=== PATIENT | female | born 1940 | race Caucasian/White ===

== ENCOUNTER 2019-08-22 17:31 | Inpatient (IN) | payer OTHER ==
[~2019-08-22] VITALS: Ht 152.4 cm; Wt 126.3 kg
[2019-08-22] MEDS ORDERED: ONDANSETRON HCL 4 MG/2 ML VIAL IV ONE (18:00)
[2019-08-22 18:17] LABS: Basophils # (auto) 0.1 10 ^3/uL (0-0.2); Basophils % (auto) 1.2 % (0.0-2.0); Eosinophils # (auto) 0.3 10 ^3/uL (0-0.8); Hematocrit 43.6 % (36.0-46.0); Hemoglobin 14.5 g/dL (12.2-16.2); Lymphocytes # (auto) 2.8 10 ^3/uL (0.4-5.4); Lymphocytes % (auto) 30.1 % (10.0-50.0); Mean Corpuscular Hemoglobin 30.6 pg (28.0-32.0); Mean Corpuscular Hgb Conc. 33.3 g/dL (32.0-36.0); Mean Corpuscular Volume 92.1 fL (80.0-100.0); Monocytes # (auto) 0.8 10 ^3/uL (0-1.3); Monocytes % (auto) 8.4 % (0.0-12.0); Neutrophils # (auto) 5.2 10 ^3/uL (1.6-8.6); Neutrophils % (auto) 57.3 % (37.0-80.0); Nucleated Red Blood Cells % 0.1 %; Platelet Count (auto) 210 10^3/uL (140-450); Red Blood Cells 4.74 10^6/uL (4.0-5.20); Red Cell Distribution Width 13.6 % (11.8-14.3); White Blood Cell 9.1 10^3/uL (4.4-10.8)
[2019-08-22 18:31] LABS: Alanine Aminotransferase 14 U/L (13-56); Albumin 3.6 g/dL (3.4-5.0); Anion Gap 9 (5-15); Aspartate Aminotransferase 22 U/L (15-37); BUN/Creatinine Ratio 17.3; Blood Urea Nitrogen 17 mg/dL (7-18); Calcium 8.8 mg/dL (8.5-10.1); Carbon Dioxide 20 mmol/L (21-32); Chloride 105 mmol/L (98-107); GFR African American 70 mL/min; GFR Non-African American 58 mL/min; Glucose 94 mg/dL (74-106); Potassium 4.1 mmol/L (3.5-5.1); Sodium 134 mmol/L (136-145)
[2019-08-22 18:36] LABS: Alkaline Phosphatase 83 U/L (45-117); Bilirubin, Total 0.5 mg/dL (0.2-1.0); Total Protein 7.4 g/dL (6.4-8.2)
[2019-08-22] MEDS ORDERED: LORazepam 2MG/ML-1ML VIAL IV PRN (21:30)
[2019-08-22] MEDS ORDERED: SODIUM CHLORIDE 0.9% 1,000 ML IV ONE (21:30)
[2019-08-22] MEDS ORDERED: DOCUSATE SOD 100 MG CAP PO PRN (22:45)
[2019-08-22] MEDS ORDERED: HYDROcodone-ACET 5/325MG TAB PO PRN (22:45)
[2019-08-22] MEDS ORDERED: NITROGLYCERIN 0.4 MG SL TAB SL PRN (22:45)
[2019-08-22] MEDS ORDERED: ONDANSETRON HCL 4 MG/2 ML VIAL IV PRN (22:45)
[2019-08-22] MEDS ORDERED: MORPHINE SULF INJ 2 MG/ML SYRINGE 1ML IV PRN ×2 (22:45)
[2019-08-22] MEDS ORDERED: ACETAMINOPHEN 325 MG TAB PO PRN (22:45)
[2019-08-22] MEDS: SODIUM CHLORIDE 0.9% 1,000 ML IV SCH (23:01)
[2019-08-23] VITALS (7 sets, daily range): BP systolic 105–168; BP diastolic 63–91
--- NOTE | 2019-08-23 | NUR ---
Patient admitted to unit from ER Patient AOX4 with no complaints of pain. No signs or symptoms of distress, no SOB. Patient safety measures in place w/ HOB at 30 degrees, bed in lowest position, side rails up x2, and call light within reach. Discussed POC w/ patient, patient gave verbal understanding.
[2019-08-23] MEDS ORDERED: ATEN-60 PO (01:39)
[2019-08-23 07:26] LABS: Basophils # (auto) 0.1 10 ^3/uL (0-0.2); Basophils % (auto) 1.2 % (0.0-2.0); Eosinophils # (auto) 0.2 10 ^3/uL (0-0.8); Eosinophils % (auto) 2.5 % (0.0-7.0); Hematocrit 43.8 % (36.0-46.0); Hemoglobin 14.7 g/dL (12.2-16.2); Lymphocytes # (auto) 2.4 10 ^3/uL (0.4-5.4); Mean Corpuscular Hgb Conc. 33.7 g/dL (32.0-36.0); Mean Corpuscular Volume 92.1 fL (80.0-100.0); Monocytes # (auto) 0.7 10 ^3/uL (0-1.3); Monocytes % (auto) 8.7 % (0.0-12.0); Neutrophils # (auto) 4.7 10 ^3/uL (1.6-8.6); Neutrophils % (auto) 57.6 % (37.0-80.0); Nucleated Red Blood Cells % 0.2 %; Platelet Count (auto) 221 10^3/uL (140-450); Red Blood Cells 4.75 10^6/uL (4.0-5.20); Red Cell Distribution Width 13.4 % (11.8-14.3); White Blood Cell 8.1 10^3/uL (4.4-10.8)
--- NOTE | 2019-08-23 07:35 | NUR ---
Report given to SAHRA Cardoza, patient is resting no distress, pain or SOB.
[2019-08-23 07:42] LABS: Calcium 8.9 mg/dL (8.5-10.1)
[2019-08-23 07:45] LABS: BUN/Creatinine Ratio 13.6
--- NOTE | 2019-08-23 07:55 | NUR ---
Opening Shift Note Assumed care of patient, awake and alert. No S/S of distress/SOB or pain. Instructed on POC and to call for assist PRN, will continue to monitor for changes Q1hr and PRN. Call light place within reach for patient.
[2019-08-23] MEDS: ATORVASTATIN 20 MG TAB PO SCH (10:00)
[2019-08-23] MEDS: ASPirin 81 mg TAB PO SCH (10:00)
--- NOTE | 2019-08-23 10:00 | NUR ---
PO Medications Patient refused aspirin and Lipitor this AM. She states that her eye doctor does not want her to take Aspirin because she bleeds easily in her eyes, and she took Lipitor in the past and it gave her severe pain in her legs and restricted walking so her PCP discontinued it for her.
[2019-08-23] MEDS ORDERED: ATOR20TA50 PO (11:43)
[2019-08-23] MEDS ORDERED: ASPI81CH43 PO (11:43)
--- NOTE | 2019-08-23 14:30 | NUR ---
Patient confused As per Michael (soil technician, he could not complete procedure. Patient became very restless). Patient came back to the unit and is very confused and agitated.
--- NOTE | 2019-08-23 14:42 | NUR ---
Hospitalist Radhaing Dr. Zuluaga at bedside.
--- NOTE | 2019-08-23 14:45 | NUR ---
Rounding Patient took out IV stated that she just wanted it out, it's been in since yesterday. She also took her wrist band and fall band. She said she just wanted them off. Explained to patient the purpose of them. Will place new ones.
--- NOTE | 2019-08-23 16:50 | NUR ---
Orientation Patient alert and oriented to person, place, time, and situation.
--- NOTE | 2019-08-23 17:45 | NUR ---
IV insertion IV access obtained, via clean sterile technique by inserting a 24 gauge catheter at Left forearm after 3 attempt(s). IV secured properly. No trauma to site. Patient tolerated well. Addendum: 08/23/19 at 1806 by GISEL NORRIS RN IV inserted by patricia BOCANEGRA
[2019-08-23] MEDS: SODIUM CHLORIDE 0.9% 1,000 ML IV SCH (18:04)
--- NOTE | 2019-08-23 19:20 | NUR ---
Opening Shift Note Assumed care of patient, AOx1. No S/S of distress/SOB or pain. Patient woke up from a nap confused about being in the hospital. Reminded patient about place and situation. Patient re-oriented and now resting. Will continue to monitor for changes. Safety measures in place w/ HOB 30 degrees, bed in lowest position, bed alarm on, call light within reach, and side rails up x2.
[2019-08-24 05:15] VITALS: BP 155/71
--- NOTE | 2019-08-24 06:00 | NUR ---
Patient running ST elevation, only complain from patient was slight nausea. EKG was done showing slight ST-elevation. No other signs or symptoms were noted. Per Dr. Barry, cardiac consult and troponin levels ordered.
[2019-08-24 09:00] VITALS: BP 110/65
[2019-08-24] MEDS: SODIUM CHLORIDE 0.9% 1,000 ML IV SCH (09:48)
[2019-08-24] MEDS: ATORVASTATIN 20 MG TAB PO SCH (09:49)
[2019-08-24] MEDS: ASPirin 81 mg TAB PO SCH (09:50)
--- NOTE | 2019-08-24 11:28 | NUR ---
Notified community service technician to call in cardio consult for patient.
--- NOTE | 2019-08-24 11:54 | NUR ---
DR ANAYA CALLED, HE REPORTS HE IS NOT CONTRACTED WITH THIS PATIENT. REPORTS HE WAS ALREADY CALLED AND NOTIFIED OF PT ST ELEVATION, HE REPORTS PT DID NOT HAVE A STEMI.
--- NOTE | 2019-08-24 11:59 | NUR ---
DR ANAYA REQUESTED COPY OF EKG TO BE BULLETED TO HIM, LATONIA BODY MECHANIC REPORTS SHE BULLETED EKG AND MADE A COPY.
[2019-08-24 13:00] VITALS: BP 155/74
--- NOTE | 2019-08-24 13:30 | NUR ---
DR TERESE YIP MD REPORTS PT HAS HAD A STROKE AND TO DC ON ASPIRIN AND LIPITOR. Addendum: 08/24/19 at 1337 by TEMITOPE YOUSIF RN REPORTS HE REVIEWED THE MRI FROM TODAY AND IS AWARE.
--- NOTE | 2019-08-24 14:46 | NUR ---
PROCESS INSPECTOR REPORTS PT BP 155/74, HR 69. REASSESSED BP, BP 167/87, HR 69. CALLED AND LEFT MESSAGE FOR DR GUDINO, REPORTING BLOOD PRESSURE AND REQUESTING MED TO BRING IT DOWN. AWAITING CALL BACK.
--- NOTE | 2019-08-24 14:52 | NUR ---
PAGED SS TO SET UP HOME HEALTH. AWAITING CALL BACK.
--- NOTE | 2019-08-24 14:53 | NUR ---
DR GUDINO CALLED BACK, NEW ORDERS FOR ATENOLOL 25 MG PO NOW AND THEN DC.
[2019-08-24] MEDS ORDERED: ATENOLOL 25 MG TAB PO ONE (15:00)
--- NOTE | 2019-08-24 16:19 | NUR ---
ASHU CALLED BACK, SHE REPORTS PT IS SET UP WITH [facility] AND TO FAX PAPERWORK TO [facility] AND [facility]. ASKED LATONIA ASSISTED LIVING ASSOCIATE TO FAX PAPER WORK.
[2019-08-24 17:00] VITALS: BP 147/84
--- NOTE | 2019-08-24 18:00 | NUR ---
RECHECKED PT BP AGAIN, BP 147/101, HR 72.
--- NOTE | 2019-08-24 19:01 | NUR ---
[facility] is not available to be paged at this time. Unable to confirm if [facility] has agreed to sent walker to home or if [facility] has arranged home health. Will attempt to call [facility].
--- NOTE | 2019-08-24 19:02 | NUR ---
CALLED [facility] TO SEE IF PT WAS SET UP, NO ANSWER, LEFT MESSAGE, AWAITING CALL BACK.
--- NOTE | 2019-08-24 19:26 | NUR ---
Spoke to [facility]. Patient's insurance is not accepted by company so they will not be delivering walker. Will notify .
--- NOTE | 2019-08-24 19:33 | NUR ---
Called and spoke to MD Vivas, who is covering for MD Zuluaga. Stated he would notify MD Zuluaga but also requested I call [facility] case manage to see if Home Health has been arranged.
--- NOTE | 2019-08-24 19:40 | NUR ---
CALLED PT SON AUGUST AND PT DAUGHTER PRAVEEN ANSWERED PHONE. SPOKE WITH NACHO AND NOTIFIED HER NO INFORMATION IS AVAILABLE YET FOR HOME AND IT HAS NOT BEEN SET UP. ALSO NOTIFIED HER [facility] IS SUPPOSED TO DELIVER PT EQUIPMENT AND THAT HAS NOT BEEN SET UP YET WELL. PRAVEEN REPORTS SHE STILL WANTS PATIENT TO COME HOME AND SHE WILL FOLLOW UP WITH [facility] AND [facility] TOMORROW. SHE REPORTS PT WANTS TO COME HOME SOON POSSIBLE AND SHE FEELS IT WOULD BE BETTER FOR PATIENT.
--- NOTE | 2019-08-24 19:42 | NUR ---
Called and left a message with CM at [facility]. Awaiting call back.
--- NOTE | 2019-08-24 19:48 | NUR ---
Spoke to MD Vivas, who is covering for MD Zuluaga. Per , if patient wishes to go home than that is fine. Home health will be arranged by family and [facility] tomorrow. Addendum: 08/24/19 at 2022 by ADRIANA SCHRADER RN Notified that I was not able to reach CM at [facility].
[2019-08-24 20:07] VITALS: BP 149/87
--- NOTE | 2019-08-24 20:48 | NUR ---
Discharge instructions given as ordered. Encourage to follow up with PMD as instructed. All questions and concerns addressed. Patient verbalized understanding. Patient understands that walker has not been approved as of right now and that Home Health with [facility] has not been confirmed. Medication reconciliation form completed and copy given to patient. IV removed with catheter intact, pressure dressing applied.Telemetry unit returned to [place] [facility]. Patient taken to vehicle via wheelchair with all personal belongings, accompanied by staff and family member. No distress noted at time of departure.
== END 2019-08-24 20:48 | disposition home or self-care (01) | DRG 65 ==
LOC: EDBD 17:31 → ER 17:31 → TELE-EAST 17:32
PROVIDERS: ADMIT Hospitalist; ATTEND Hospitalist
DX: I63.9 Cerebral infarction, unspecified (principal); G45.9 Transient cerebral ischemic attack, unspecified; H57.02 Anisocoria; I10 Essential (primary) hypertension; I25.10 Atherosclerotic heart disease of native coronary artery without angina pectoris; S09.8XXA Other specified injuries of head, initial encounter; X58.XXXA Exposure to other specified factors, initial encounter; Z79.899 Other long term (current) drug therapy; Z86.73 Personal history of transient ischemic attack (TIA), and cerebral infarction without residual deficits; Z95.1 Presence of aortocoronary bypass graft; I25.2 Old myocardial infarction; Y93.89 Activity, other specified; Y92.89 Other specified places as the place of occurrence of the external cause; Y99.8 Other external cause status
CPT/HCPCS: 36415; 70450; 70545; 70553; 72125; 80048; 80053; 80061; 84484; 85025; 93005; 93306; 97163; G0378; J2405